=== PATIENT | female | born 1965 | race Caucasian/White ===

== ENCOUNTER → 2020-07-13 | Outpatient (CLI) | payer OTHER ==
[2020-07-13 11:45] LABS: BASO # 0.1 x10^3/uL (0.0-0.2); BASO % 1 % (0-3); EOS # 0.6 x10^3/uL (0.0-0.7); EOS % 9 % (0-3); HEMATOCRIT 40.3 % (36.0-47.0); HEMOGLOBIN 14.1 g/dL (12.0-15.5); LYMPH # 1.7 x10^3/uL (1.0-4.8); LYMPH % 25 % (24-48); MEAN CORPUSCULAR HEMOGLOBIN 32 pg (25-35); MEAN CORPUSCULAR HGB CONC 35 g/dL (31-37); MEAN CORPUSCULAR VOLUME 91 fL (79-100); MONO # 0.4 x10^3/uL (0.0-1.1); MONO % 6 % (0-9); NEUT % 60 % (31-73); PLATELET COUNT 293 x10^3/uL (140-400); RED BLOOD COUNT 4.44 x10^6/uL (3.50-5.40); RED CELL DISTRIBUTION WIDTH 12.3 % (11.5-14.5); WHITE BLOOD COUNT 6.8 x10^3/uL (4.0-11.0)
[2020-07-13 12:09] LABS: CALCIUM 9.2 mg/dL (8.5-10.1); CREATININE 0.8 mg/dL (0.6-1.0); GFR 74.5; POTASSIUM 3.8 mmol/L (3.5-5.1)
[2020-07-13 12:15] LABS: ALBUMIN 3.9 g/dL (3.4-5.0); ALBUMIN/GLOBULIN RATIO 1.1 (1.0-1.7); TOTAL BILIRUBIN 0.5 mg/dL (0.2-1.0); TOTAL PROTEIN 7.5 g/dL (6.4-8.2); URIC ACID 5.6 mg/dL (2.6-6.0)
[2020-07-14 15:13] LABS: KAPPA FREE 16.3 mg/L (3.3-19.4); KAPPA LAMBDA RATIO 1.12 (0.26-1.65); LAMBDA FREE 14.6 mg/L (5.7-26.3)
[2020-07-17 19:09] LABS: ALBUM 4.3 g/dL (2.9-4.4); ALPHA 1 0.2 g/dL (0.0-0.4); ALPHA 2 0.9 g/dL (0.4-1.0); GAMMA 0.9 g/dL (0.4-1.8); PROTEIN TOTAL 7.3 g/dL (6.0-8.5); SPEP AG RATIO 1.4 (0.7-1.7)
== END | disposition home or self-care (01) ==
LOC: ONCLAB 11:20
PROVIDERS: ATTEND Internal Medicine Hematology & Oncology
DX: C82.01 Follicular lymphoma grade I, lymph nodes of head, face, and neck (principal)
CPT/HCPCS: 36415; 80053; 83520; 83615; 84165; 84550; 85025; 86317; 86703; 86704; 86803; 87340

== ENCOUNTER → 2020-07-21 | Outpatient (CLI) | payer OTHER ==
--- NOTE | 2020-07-21 12:24 | RAD ---
PET W CT SKULL TO MIDTHIGH Clinical Indication: Follicular lymphoma. Initial staging. Comparison: None. Technique: Patient blood glucose at the time of injection is 72 mg/dL. The patient was administered 13.1 mCi of F-18 FDG intravenously. The patient rested quietly during a 60 minute uptake period. Then PET imaging from the skull base to the upper thighs was performed. A noncontrast CT was acquired over this same area. The CT is for attenuation correction and anatomic localization, it is not of diagnostic quality and is not intended to diagnose disease independently of the PET. PQRS Compliance Statement: One or more of the following individualized dose reduction techniques were utilized for this examination: 1. Automated exposure control 2. Adjustment of the mA and/or kV according to patient size 3. Use of iterative reconstruction technique Findings: Background: Mediastinal SUV max: 2. 74 Liver SUV 3.16 Head and neck: Enlarged hypermetabolic right level 2 lymph node measures 1.6 x 1.3 cm with SUV max 7.84. No additional cervical hypermetabolic lymph nodes. Imaged intracranial contents are unremarkable. CheThere is no evidence of FDG-avid disease.ease. No consolidation or pleural effusion. Linear bilateral atelectasis. No pathologic lymphadenopathy within the chest. Abdomen and pelvThere is no evidence of FDG-avid disease.ease. The liver, spleen, adrenal glands, pancreas and gallbladder have unremarkable noncontrast appearance. Linear calcination within the right kidney superiorly, nonspecific. No hydronephrosis. Normal appendix. No evidence of bowel obstruction. No pathologic lymphadenopathy. No ascites. Uterus and ovaries are unremarkable. Small fat-containing umbilical hernia. MusculoskeleThere is no evidence of FDG-avid disease.ease. Multilevel cervical spondylosis. Grade 1 anterolisthesis L4 on L5. Multilevel lumbar spinal stenosis most prominent L4-5 and L5-S1. Lower lumbar facet arthropathy. IMPRESSION: 1. Hypermetabolic right level 2 lymph node, may relate to known follicular lymphoma. No hypermetabolic lymphadenopathy within the chest, abdomen or pelvis. Electronically signed by: Mike Chapman DO (07/21/2020 12:21 PM) [id number]
== END ==
LOC: PETSC 09:41
PROVIDERS: ATTEND Internal Medicine Hematology & Oncology
DX: C82.01 Follicular lymphoma grade I, lymph nodes of head, face, and neck (principal); J98.11 Atelectasis; M47.812 Spondylosis without myelopathy or radiculopathy, cervical region; M43.12 Spondylolisthesis, cervical region; M48.07 Spinal stenosis, lumbosacral region
CPT/HCPCS: 78815; A9552

== ENCOUNTER 2020-07-25 08:20 | Outpatient (CLI) | payer OTHER ==
[2020-07-25] VITALS (13 sets, daily range): BP systolic 127–159; BP diastolic 50–92
[~2020-07-25] VITALS: Ht 172.7 cm; Wt 79.4 kg
[2020-07-25] MEDS ORDERED: ASPI-630 PO (08:35)
[2020-07-25] MEDS ORDERED: OMEP20CA16 PO (08:35)
[2020-07-25] MEDS ORDERED: LOSA1TAB19 PO (08:35)
[2020-07-25] MEDS ORDERED: CALC-497 PO (08:35)
[2020-07-25] MEDS ORDERED: PRAV20TA2 PO (08:35)
[2020-07-25 09:33] LABS: BASO # 0.1 x10^3/uL (0.0-0.2); BASO % 1 % (0-3); EOS # 0.5 x10^3/uL (0.0-0.7); EOS % 9 % (0-3); HEMOGLOBIN 13.5 g/dL (12.0-15.5); LYMPH # 1.3 x10^3/uL (1.0-4.8); LYMPH % 26 % (24-48); MEAN CORPUSCULAR HEMOGLOBIN 32 pg (25-35); MEAN CORPUSCULAR HGB CONC 35 g/dL (31-37); MEAN CORPUSCULAR VOLUME 92 fL (79-100); MONO # 0.3 x10^3/uL (0.0-1.1); MONO % 7 % (0-9); NEUT # 2.9 x10^3/uL (1.8-7.7); NEUT % 57 % (31-73); PLATELET COUNT 287 x10^3/uL (140-400); RED BLOOD COUNT 4.25 x10^6/uL (3.50-5.40); RED CELL DISTRIBUTION WIDTH 12.3 % (11.5-14.5)
[2020-07-25 09:42] LABS: CALCIUM 9.2 mg/dL (8.5-10.1); CREATININE 0.8 mg/dL (0.6-1.0); GFR 74.5; POTASSIUM 5.1 mmol/L (3.5-5.1); PROTHROMBIN TIME PATIENT 12.8 SEC (11.7-14.0)
[2020-07-25 09:48] LABS: ALBUMIN 3.6 g/dL (3.4-5.0); ALBUMIN/GLOBULIN RATIO 1.1 (1.0-1.7); TOTAL BILIRUBIN 0.3 mg/dL (0.2-1.0)
[2020-07-25] MEDS ORDERED: LIDOCAINE WITH 8.4% SOD BICARB 3 ML DISP.SYRIN. ONE ×2 (10:05→10:12)
[2020-07-25] MEDS ORDERED: fentaNYL PF VIAL 100 MCG/2 ML VIAL ONE (10:12)
[2020-07-25] MEDS ORDERED: MIDAZOLAM HCL/PF 2 MG/2 ML VIAL. ONE (10:12)
[2020-07-25] MEDS ORDERED: MIDAZOLAM HCL/PF 2 MG/2 ML VIAL. IV ONE (11:00)
[2020-07-25] MEDS ORDERED: LIDOCAINE WITH 8.4% SOD BICARB 3 ML DISP.SYRIN. IJ ONE (11:00)
[2020-07-25] MEDS ORDERED: fentaNYL PF VIAL 100 MCG/2 ML VIAL IV ONE (11:00)
--- NOTE | 2020-07-25 13:36 | NUR ---
Discharge Note: CINTHYA GALE Discharge instructions and discharge home medications reviewed with Family Member and a copy given. All questions have been answered and understanding verbalized. Patient ate lunch with no issues. The following instructions and handouts were given: Moderate sedation and Bone marrow biopsy. Discontinued lines and drains: left hand PIV, dressing clean dry intact. Patient discharged to home with family member via wheelchair to private vehicle.
--- NOTE | 2020-07-25 16:08 | RAD ---
CT-guided bone marrow biopsy. 07/25/2020 2:04 PM Indication: Follicular Lymphoma Discussion: The risks and benefits of the procedure, including but not limited to, bleeding and infection were discussed patient. Informed consent was obtained. The patient was brought to the CT scanner and placed in the prone position. A timeout procedure was performed. Electrical Calibrator CT imaging of the pelvis demonstrated left ilium amenable to bone marrow biopsy. The overlying soft tissues were prepped and draped using maximum sterile barrier technique. 1% lidocaine without epinephrine was administered for local anesthesia. Under intermittent CT guidance, an OncControl needle was advanced into the bone marrow of the left iliac crest. 2 Aspirates and 1 core biopsy samples were obtained. Samples were delivered to pathology was present at the time of procedure. The needle was removed and manual pressure held to achieve hemostasis. No immediate complications were identified. The procedure was performed under conscious sedation including continuous cardiopulmonary monitoring via dedicated sedation nurse. Sedation time: 12 minutes Impression: Successful CT-guided bone marrow biopsy of the left iliac crest . PQRS Compliance Statement: One or more of the following individualized dose reduction techniques were utilized for this examination: 1. Automated exposure control 2. Adjustment of the mA and/or kV according to patient size 3. Use of iterative reconstruction technique
--- NOTE | 2020-07-28 16:06 | PATHOLOGY ---
[facility] Accession Number: [id number] . 01 Material submitted: . PART A: bone - BONE MARROW BIOPSY PART B: bone - BONE MARROW CLOT PART C: bone - BONE MARROW ASPIRATE SLIDES PART D: bone - PERIPHERAL BLOOD SMEARS PART E: bone - BONE MARROW FLOW . 01 Clinical history: . 54-YEAR-OLD WOMAN WITH FOLLICULAR LYMPHOMA. THIS IS A STAGING MARROW. . 02 Diagnosis: Bone marrow aspirate, biopsy, cell clot and peripheral blood: - Peripheral blood with no diagnostic abnormalities. - Normocellular bone marrow with trilineage hematopoiesis, mild (no significant) dyspoiesis and no evidence of lymphoma or acute leukemia. - See comment. (CLW:yassine; 07/28/2020) S 07/28/2020 1332 Local . 02 Comment: Overall the bone marrow is normocellular for the patient's age with trilineage hematopoiesis, mild (no significant) dyspoiesis and no evidence of the patient's previously diagnosed follicular lymphoma ([id number]) or acute leukemia. The dyspoiesis is mild and does not meet the morphologic criteria for myelodysplasia. Correlation with cytogenetics is also recommended. (CLW:yassine; 07/28/2020) . 02 Electronically signed: . Rafaela Mena MD, Pathologist NPI- [id number] . 01 Gross description: . A. The specimen is received in formalin, labeled "Violet Aquino, bone marrow biopsy". Received is a single needle core of light fernandes bone measuring 1.2 cm in length by 0.3 cm in diameter. The specimen is submitted entirely in cassette A1, following light decalcification. . B. The specimen is received in formalin, labeled "Violet Aquino, BM aspirate clot". Received is blood coagulum measuring 3.0 x 2.5 x 0.4 cm in aggregate dimensions. The specimen is filtered and entirely submitted in cassette B1 and B2. (CAA; 07/25/2020) QAC/QAC 07/25/2020 1607 Local . 02 Microscopic: . CBC Data (07/25/20): WBC 5,000 /uL, RBC 4.25, hemoglobin 13.5 g/dL, hematocrit 39.0%, MCV 92 fL, MCH 32 pg, MCHC 35 g/dL, RDW 12.3%, and platelet count 287,000 /uL. White blood cell differential: segs 57%, lymphs 26%, monos 7%, eos 9%, and basos 1%. . Peripheral Blood Smear: Cytomorphological examination of the Moran's stained peripheral blood smear confirms the provided data. Red blood cells are normocytic and are without significant anisopoikilocytosis. White blood cells are predominantly segmented neutrophils and are without significant dyspoiesis or significant left shift. Lymphocytes are predominantly small, round, and mature appearing with condensed chromatin and scant cytoplasm with admixed large granular lymphocytes. On scanning, no markedly atypical lymphoid cells are seen. Monocytes are mature. Platelets are adequate in number and mainly normal in morphology with rare larger platelets noted. . Aspirate Smears: Cytomorphological examination of the Moran's stained aspirate smears shows spicules present. The overall cellularity is approximately 40-50%. The myeloid to erythroid ratio is 2:1. Full myeloid maturation is identified and is without significant dyspoiesis. Erythroid maturation is mildly dyserythropoietic with irregular nuclear contours and nuclear cytoplasmic dyssynchrony. In a 500 cell differential, there are 2% blasts (no Dejon rods are seen), 51% more differentiated myeloids, 33% erythroid precursors, 13% lymphocytes and 1% plasma cells. Megakaryocytes are proportional in number and both normal and abnormal in morphology with variable sizes in nuclear abnormalities. No lymphoid aggregates or markedly atypical lymphoid cells are seen. Plasma cells are without atypia. Iron stain of the aspirate smear shows 2/4+ iron positivity with spicules present. No ringed sideroblasts are identified. . Core Biopsy and Cell Clot: The decalcified bone marrow core biopsy is adequate. The bone marrow is normocellular with an overall cellularity of approximately 40%. The myeloid to erythroid ratio is 1-2:1. Myeloid maturation is without significant dyspoiesis. Erythroid maturation is minimally dyserythropoietic. Megakaryocytes are normal in number and both normal and abnormal in morphology. No lymphoid aggregates or markedly atypical lymphoid cells are seen. Bony trabeculae and blood vessels are unremarkable. The cell clot has spicules present that are similar in cellularity and differential morphology as previously described. Properly controlled special stains are performed. . Block A1: Iron - 1/4+ iron positivity; Reticulin - no reticulin fibrosis. . Block B1: Iron - 1-2/4+ iron positivity with spicules present. . To confirm the flow cytometry findings, to identify cells in a tissue architectural context and due to the patient's history of lymphoma, properly controlled immunohistochemical stains are performed. . Block A1: CD20 - stains rare scattered small B-cells; PAX5 - stains rare scattered small B-cells; CD3 - highlights admixed T-cells. . Block B1: CD20 - stains scattered small B-cells; PAX5 - stains scattered small B-cells; CD3 - stains admixed T-cells with a rare small aggregate present. . . Flow Cytometry: Flow cytometric immunophenotypic analysis was performed at [facility]. The diagnosis is "no diagnostic immunophenotypic abnormalities detected." There are 15.2% lymphocytes. Of the lymphocytes, there are 92% T-cells with a CD4/CD8 ratio of 1.2 and no aberrant T-cell antigen expression and 4% polyclonal mature B-cells (kappa lambda ratio of 1.3). There are 0.9% CD34 positive cells (blasts) and 0.5% precursor B-cells. There are 0.3% plasma cells. Please see separate flow cytometry report from [facility] ([id number]). . Cytogenetics Analysis: Cytogenetic chromosomal analysis is pending at [facility] ([id number]). (CLW:yassine; 07/28/2020) . . 02 Pathologist provided ICD-10: C82.90 . 02 CPT . 679176, 497905, 303446, 753338, 744963, 990930, 815258, 356719, 076425, [id number], [id number] Specimen Comment: A courtesy copy of this report has been sent to [phone], [phone] Specimen Comment: [id number] Specimen Comment: Report sent to / DR RIDER Performed at: 01 [facility] [address] [id number] MD Jovanny Cornejo MD Phone: [phone] Performed at: 02 [facility] [address] [id number] MD Kody Shanks MD Phone: [phone]
== END 2020-07-25 13:00 | disposition home or self-care (01) ==
LOC: INTRAD 08:20
PROVIDERS: ATTEND Internal Medicine Hematology & Oncology
DX: C82.80 Other types of follicular lymphoma, unspecified site (principal); Z79.82 Long term (current) use of aspirin; Z79.899 Other long term (current) drug therapy
CPT/HCPCS: 36415; 38222; 77012; 80053; 85025; 85610; 88305; 88311; 88313; 88341; 88342; 99152; J2250; J3010; J3490

== ENCOUNTER → 2020-11-22 | Outpatient (CLI) | payer OTHER ==
[2020-07-25 12:35] VITALS: BP 148/78
[~2020-11-22] MED LIST: ASPI-630 PO; CALC-497 PO; LOSA1TAB19 PO; OMEP20CA16 PO; PRAV20TA2 PO
[2020-11-22 13:38] LABS: BASO # 0.1 x10^3/uL (0.0-0.2); BASO % 1 % (0-3); EOS # 0.7 x10^3/uL (0.0-0.7); EOS % 13 % (0-3); HEMATOCRIT 39.4 % (36.0-47.0); HEMOGLOBIN 13.6 g/dL (12.0-15.5); LYMPH # 1.7 x10^3/uL (1.0-4.8); LYMPH % 31 % (24-48); MEAN CORPUSCULAR HEMOGLOBIN 32 pg (25-35); MEAN CORPUSCULAR HGB CONC 35 g/dL (31-37); MEAN CORPUSCULAR VOLUME 91 fL (79-100); MONO # 0.4 x10^3/uL (0.0-1.1); MONO % 8 % (0-9); NEUT # 2.6 x10^3/uL (1.8-7.7); NEUT % 47 % (31-73); PLATELET COUNT 299 x10^3/uL (140-400); RED BLOOD COUNT 4.31 x10^6/uL (3.50-5.40); RED CELL DISTRIBUTION WIDTH 12.4 % (11.5-14.5); WHITE BLOOD COUNT 5.5 x10^3/uL (4.0-11.0)
== END ==
LOC: ONCLAB 13:05
PROVIDERS: ATTEND Internal Medicine Hematology & Oncology
DX: C82.11 Follicular lymphoma grade II, lymph nodes of head, face, and neck (principal)
CPT/HCPCS: 36415; 83615; 85025

== ENCOUNTER → 2021-02-19 | Outpatient (CLI) | payer OTHER ==
[2020-07-25 12:35] VITALS: BP 148/78
[2021-02-19 12:13] LABS: BASO # 0.1 x10^3/uL (0.0-0.2); BASO % 1 % (0-3); EOS # 0.8 x10^3/uL (0.0-0.7); EOS % 15 % (0-3); HEMATOCRIT 37.7 % (36.0-47.0); HEMOGLOBIN 13.1 g/dL (12.0-15.5); LYMPH # 1.5 x10^3/uL (1.0-4.8); LYMPH % 26 % (24-48); MEAN CORPUSCULAR HEMOGLOBIN 32 pg (25-35); MEAN CORPUSCULAR HGB CONC 35 g/dL (31-37); MEAN CORPUSCULAR VOLUME 91 fL (79-100); MONO # 0.4 x10^3/uL (0.0-1.1); MONO % 8 % (0-9); NEUT # 2.9 x10^3/uL (1.8-7.7); NEUT % 51 % (31-73); PLATELET COUNT 278 x10^3/uL (140-400); RED BLOOD COUNT 4.14 x10^6/uL (3.50-5.40); RED CELL DISTRIBUTION WIDTH 12.7 % (11.5-14.5); WHITE BLOOD COUNT 5.7 x10^3/uL (4.0-11.0)
[2021-02-19 12:19] LABS: CALCIUM 8.4 mg/dL (8.5-10.1); CREATININE 0.7 mg/dL (0.6-1.0); GFR 86.6; POTASSIUM 4.1 mmol/L (3.5-5.1)
[2021-02-19 12:24] LABS: ALBUMIN 4.2 g/dL (3.4-5.0); ALBUMIN/GLOBULIN RATIO 1.5 (1.0-1.7); TOTAL BILIRUBIN 0.5 mg/dL (0.2-1.0)
== END ==
LOC: ONCLAB 11:49
PROVIDERS: ATTEND Physician Assistant
DX: C82.11 Follicular lymphoma grade II, lymph nodes of head, face, and neck (principal)
CPT/HCPCS: 36415; 80053; 83615; 85025

== ENCOUNTER → 2021-11-02 | Outpatient (CLI) | payer OTHER ==
[2020-07-25 12:35] VITALS: BP 148/78
[2021-11-02 14:01] LABS: BASO % 1 % (0-3); EOS # 0.5 x10^3/uL (0.0-0.7); EOS % 8 % (0-3); HEMATOCRIT 39.9 % (36.0-47.0); HEMOGLOBIN 13.6 g/dL (12.0-15.5); LYMPH # 1.8 x10^3/uL (1.0-4.8); LYMPH % 26 % (24-48); MEAN CORPUSCULAR HEMOGLOBIN 31 pg (25-35); MEAN CORPUSCULAR HGB CONC 34 g/dL (31-37); MEAN CORPUSCULAR VOLUME 92 fL (79-100); MONO # 0.5 x10^3/uL (0.0-1.1); MONO % 8 % (0-9); NEUT # 3.9 x10^3/uL (1.8-7.7); NEUT % 58 % (31-73); PLATELET COUNT 284 x10^3/uL (140-400); RED BLOOD COUNT 4.35 x10^6/uL (3.50-5.40); RED CELL DISTRIBUTION WIDTH 12.3 % (11.5-14.5); WHITE BLOOD COUNT 6.8 x10^3/uL (4.0-11.0)
[2021-11-02 14:08] LABS: CALCIUM 8.1 mg/dL (8.5-10.1); CREATININE 0.8 mg/dL (0.6-1.0); GFR 73.9; POTASSIUM 3.7 mmol/L (3.5-5.1)
[2021-11-02 14:13] LABS: ALBUMIN 3.6 g/dL (3.4-5.0); ALBUMIN/GLOBULIN RATIO 0.9 (1.0-1.7); TOTAL BILIRUBIN 0.4 mg/dL (0.2-1.0); TOTAL PROTEIN 7.4 g/dL (6.4-8.2)
== END ==
LOC: ONCLAB 13:37
PROVIDERS: ATTEND Internal Medicine Hematology & Oncology
DX: C82.11 Follicular lymphoma grade II, lymph nodes of head, face, and neck (principal)
CPT/HCPCS: 36415; 80053; 83615; 85025